=== PATIENT | female | born 1990 | race Caucasian/White ===

== ENCOUNTER 2018-04-20 17:31 | Emergency (ER) | payer OTHER ==
[2018-04-20 18:02] VITALS: BP 137/94
--- NOTE | 2018-04-20 18:50 | UC ---
Lower Extremity/Ankle HPI - HPI Summary HPI Summary: Patient presents with pain in her right ankle after injury that occurred at 3: 30 this afternoon. She was walking across a driveway and sneakers. Patient states she stepped on a rock that shifted and she inverted her ankle. Patient states she fell but no other injuries. Did not strike head. No neck or back pain. No loss of consciousness. Patient states she has not taken anything for pain. Patient states she's had persistent pain on the lateral aspect of the ankle that shoots up her eye. Patient states she's got paresthesias in all of her feet. No ice applied. No knee pain no hip or back pain. No other complaints. She had sprains to the same extremity Medications reviewed this visit - History of Current Complaint Chief Complaint: UCLowerExtremity Stated Complaint: RIGHT ANKLE INJURY Time Seen by Provider: 04/20/18 18:14 Hx Obtained From: Patient Hx Last Menstrual Period: 03/13/18 Onset/Duration: Sudden Onset Severity Initially: Moderate Severity Currently: Moderate Pain Intensity: 10 Pain Scale Used: 0-10 Numeric Aggravating Factor(s): Standing, Ambulation Alleviating Factor(s): Nothing Able to Bear Weight: Yes - favoring right - Allergies/Home Medications Allergies/Adverse Reactions: Allergies Allergy/AdvReac Type Severity Reaction Status Date / Time metformin AdvReac Vomiting Verified 04/20/18 17:50 Home Medications: Home Medications Acetaminophen TAB* [Tylenol TAB*] 650 mg PO Q4H PRN 04/20/18 [History Confirmed 04/20/18] Ibuprofen TAB* [Motrin TAB* 600 MG] 600 mg PO Q6H PRN 04/20/18 [History Confirmed 04/20/18] Insulin Glargine,Hum.rec.anlog [Lantus] 40 unit SC BEDTIME 04/20/18 [History Confirmed 04/20/18] Mirtazapine TAB* [Remeron TAB*] 15 mg PO BEDTIME 04/20/18 [History Confirmed 06/30] Quetiapine Fumarate [Seroquel Xr 150 MG Tab.Er.24h] 150 mg PO BEDTIME 04/20/18 [ History Confirmed 04/20/18] PMH/Surg Hx/FS Hx/Imm Hx Previously Healthy: Yes - Surgical History Surgical History: Yes Surgery Procedure, Year, and Place: APPY 2016. [place] teeth - Family History Known Family History: Positive: Hypertension - Social History Occupation: Employed Part-time Lives: With Family Alcohol Use: Occasionally Substance Use Type: None Smoking Status (MU): Never Smoked Tobacco Review of Systems Constitutional: Negative All Other Systems Reviewed And Are Negative: Yes Physical Exam - Summary Physical Exam Summary: Vital Signs Reviewed: Yes A+Ox3, no distress Eyes: Conjunctiva Clear ENT: Hearing grossly normal neck: supple Respiratory: Positive: No respiratory distress, No accessory muscle use Cardiovascular: skin color reflect adequate perfusion 2+ DP, PT CBT < 2 sec Musculoskeletal Exam: + SLE, + flex/ext knee + flex/ext ankle with discomfort lateral aspect ankle no crepitus + great toe extension with pain in ankle no prox tib pain Neurological: Positive: Alert, + gross sensation throughout favoring right Psychological: Positive: Normal Response To Family Skin: Positive: no rash, no ecchymosis edema lateral malleolus Triage Information Reviewed: Yes Vital Signs: Initial Vital Signs Temp 98 F 04/20/18 17:55 Pulse 92 04/20/18 17:55 Resp 18 04/20/18 17:55 BP 137/94 04/20/18 17:55 Pulse Ox 100 04/20/18 17:55 Diagnostics - Radiology No standard instances Xray Interpretation: No Acute Changes - Patient Name: JENNIFER ROMERO Medical Record#: [id number] Ordering Physician: Lanette Bradshaw MD Acct.#: [id number] : 1990 Age: 28 Sex: F Location: [facility] Exam Date: 04/20/181812 ADM Status: REG ER Order Information: ANKLE RIGHT 3+VWS Accession Number: [id number] CPT: 71603 Indication: Right ankle injury. 3 views of the right ankle demonstrates no fracture. Ankle mortise is intact. Posterior calcaneal spurring is noted. IMPRESSION: Soft tissue swelling without fracture. Posterior calcaneal spur is noted. < Electronically signed by Sheri Lazo MD in OV> 06/08/18 1902 Dictated By: Sheri Lazo MD Dictated Date/Time: 04/20/181901 Transcribed Date/Time: 04/20/181901 Copy to: CC:Lanette Bradshaw MD; Non Staff,Doctor Imaging - [facility] Imaging - [facility] Imaging - [facility] [id number] [place] [id number] [place] [id number] ph ([phone]) ph ([phone] ph ([phone]) 1 of 1 Radiology Interpretation Completed By: Radiologist Lower Extremity Course/Dx - Course Course Of Treatment: Patient presents with pain in her right lateral ankle occurring after she inverted it when stepping on uneven [place] in her dry weight 3 :30. No analgesic taken. No ice applied. She reports paresthesias across her toes. No knee or hip pain. No other injury. Patient given note for work today. Encourage ice, elevate, Motrin and Tylenol. Patient comfortable and in agreement with plan. Patient imaging without acute fracture. Patient placed in an air splint and Walt wrap and crutches. Patient weight-bear tolerated. Patient has a primary care in [place] and will call for follow up. Patient given physician referral as would like a doctor closer to where she lives - Differential Dx/Diagnosis Provider Diagnoses: right ankle sprain Discharge - Sign-Out/Discharge Documenting (check all that apply): Discharge/Admit/Transfer - Discharge Plan Condition: Stable Disposition: HOME Patient Education Materials: Ankle Sprain (ED) Forms: *Work Release Referrals: [facility] [Outside] Non Staff,Doctor [Primary Care Provider] - Additional Instructions: -wear walt wrap for comfort and support -apply ice (20 min at a time) every 2-3 hours for the next 2 days -use crutches until you can walk normally without a limp -Elevate your leg - this will help with swelling and pain - Alternate ibuprofen (advil, Motrin) 600mg and tylenol every 3 hours for pain. Take with food. Do NOT take for more than 4-5 days -Contact your doctor in [place] to arrange a follow-up appointment next week. Contact your doctor or return with questions or concerns. You have also been given the contact info for the physician referral center - they can assist you finding a doctor closer to your home - Billing Disposition and Condition Condition: STABLE Disposition: Home
[2018-04-20] MEDS ORDERED: Ibuprofen TAB* 600 MG PO ONE (18:59)
--- NOTE | 2018-04-20 19:05 | RAD ---
Indication: Right ankle injury. 3 views of the right ankle demonstrates no fracture. Ankle mortise is intact. Posterior calcaneal spurring is noted. IMPRESSION: Soft tissue swelling without fracture. Posterior calcaneal spur is noted.
== END 2018-04-20 19:13 | disposition home or self-care (01) ==
LOC: UCCORT 17:31
DX: S93.401A Sprain of unspecified ligament of right ankle, initial encounter (principal); Z88.8 Allergy status to other drugs, medicaments and biological substances; W22.8XXA Striking against or struck by other objects, initial encounter; Y92.9 Unspecified place or not applicable
CPT/HCPCS: 84702; 99213; A9270-GY; G0463

== ENCOUNTER 2018-05-13 17:02 | Emergency (ER) | payer OTHER ==
[2018-05-13 17:34] VITALS: BP 120/84
--- NOTE | 2018-05-13 18:07 | ED ---
ED Suture/Wound Check - HPI Summary HPI Summary: Patient resents for wound check of abscess. History of I+D on 05/04 at [facility] for right side abdominal abscess, with Rx for Bactrim. Patient states she has been compliant with Bactrim. Patient states she is concerned because she has noticed some hard lumps around the I&D site. States she has been having intermittent nausea and episodes of feeling hot. Denies new purulent discharge , increase in erythema, increase in pain, vomiting, abdominal pain, change in urine or BM. Med History is DM. - History Of Current Complaint Chief Complaint: UCSkin Stated Complaint: SKIN COMPLAINT Time Seen by Provider: 05/13/18 17:46 Hx Obtained From: Patient Severity: Moderate Pain Intensity: 7 Pain Scale Used: 0-10 Numeric - Allergies/Home Medications Allergies/Adverse Reactions: Allergies Allergy/AdvReac Type Severity Reaction Status Date / Time metformin AdvReac Vomiting Verified 05/13/18 17:34 Home Medications: Home Medications Sulfamethox/Trimethoprim DS* [Bactrim DS 800/160 TAB*] 1 tab BID 05/13/18 [ History Confirmed 05/13/18] PMH/Surg Hx/FS Hx/Imm Hx Endocrine/Hematology History: Reports: Hx Diabetes - TYPE 2 Respiratory History: Denies: Hx Asthma History: Denies: Hx Dialysis Neurological History: Denies: Hx CVA - Surgical History Surgery Procedure, Year, and Place: APPY 2015. 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 Denies: Traveled Outside the [place] in Last 30 Days - Family History Known Family History: Positive: Hypertension, Diabetes - Social History Alcohol Use: Occasionally Substance Use Type: Reports: None Smoking Status (MU): Never Smoked Tobacco Review of Systems Positive: Fever - subj Eyes: Negative ENT: Negative Cardiovascular: Negative Respiratory: Negative Positive: Nausea Genitourinary: Negative Musculoskeletal: Negative Skin: Negative Neurological: Negative Psychological: Normal All Other Systems Reviewed And Are Negative: Yes Physical Exam - Summary Physical Exam Summary: I&D site on right side abdomen appears to be healing well. Erythema localized to the edges of I&D site. No purulent discharge or foul odor noted. Areas of very hard tissue can be palpated running horizontally on both sides of I&D site. Areas are tender when palpated. Abdomen otherwise soft nontender. Triage Information Reviewed: Yes Vital Signs On Initial Exam: Initial Vitals Temp Pulse Resp BP Pulse Ox 99.3 F 109 18 120/84 99 05/13/18 17:21 05/13/18 17:21 05/13/18 17:21 05/13/18 17:21 05/13/18 17:21 Vital Signs Reviewed: Yes Appearance: Positive: Well-Appearing Skin: Positive: Warm Head/Face: Positive: Normal Head/Face Inspection Eyes: Positive: EOMI, Conjunctiva Clear Neck: Positive: Supple Respiratory/Lung Sounds: Positive: Clear to Auscultation Cardiovascular: Positive: Normal Abdomen Description: Positive: Nontender Musculoskeletal: Positive: Normal Neurological: Positive: Normal Psychiatric: Positive: Normal AVPU Assessment: Alert - Calvin Coma Scale Best Eye Response: 4 - Spontaneous Best Motor Response: 6 - Obeys Commands Best Verbal Response: 5 - Oriented Coma Scale Total: 15 Diagnostics - Vital Signs Vital Signs Temp Pulse Resp BP Pulse Ox 05/13/18 17:21 99.3 F 109 18 120/84 99 - Laboratory Lab Statement: Any lab studies that have been ordered have been reviewed, and results considered in the medical decision making process. Course/Dx - Course Course Of Treatment: Patient resents for wound check of abscess. History of I+ D on 05/04 at [facility] for right side abdominal abscess, with Rx for Bactrim. Patient states she has been compliant with Bactrim. Patient states she is concerned because she has noticed some hard lumps around the I&D site. States she has been having intermittent nausea and episodes of feeling hot. Denies new purulent discharge, increase in erythema, increase in pain, vomiting, abdominal pain, change in urine or BM. Med History is DM. I&D site on right side abdomen appears to be healing well. Erythema localized to the edges of I& D site. No purulent discharge or foul odor noted. Areas of very hard tissue can be palpated running horizontally on both sides of I&D site. Areas are tender when palpated. Abdomen otherwise soft nontender. Areas of induration have been outlined. Patient advised to return to the ED if areas of induration expand beyond the drawn lines. Vital signs within normal limits. Continue taking antibiotics. Apply warm compresses. Return to the ED for any new or concerning symptoms - Clinical Impression Provider Diagnoses: Wound check, abscess Discharge - Sign-Out/Discharge Documenting (check all that apply): Discharge/Admit/Transfer - Discharge Plan Condition: Stable Disposition: HOME Prescriptions: Triamcinolone 0.1% CREAM (NF) [Kenalog 0.1% Cream (NF)] 1 applic .SEE ORDER TID #1 applic Patient Education Materials: Abscess (ED), Abscess Follow-up (ED) Referrals: Erasmo GARY,Rivera Fuentes [Primary Care Provider] - Additional Instructions: Use warm compresses on wound. Continue to take antibiotics as directed. Palpate areas of hardness to see if they increase past the lines drawn on your stomach. Return to the ED for any new or worsening symptoms. - Billing Disposition and Condition Condition: STABLE Disposition: Home
== END 2018-05-13 18:45 | disposition home or self-care (01) ==
LOC: UCCORT 17:02
DX: Z51.89 Encounter for other specified aftercare (principal); L02.211 Cutaneous abscess of abdominal wall; Z91.018 Allergy to other foods; E11.9 Type 2 diabetes mellitus without complications
CPT/HCPCS: 99212; G0463